=== PATIENT | female | born 1970 | race Caucasian/White ===

== ENCOUNTER 2024-05-12 07:37 | Day surgery (SDC) | payer OTHER ==
[~2024-05-12] VITALS: Ht 162.6 cm; Wt 102.1 kg
[2024-05-12] VITALS (15 sets, daily range): BP systolic 80–143; BP diastolic 48–81
[~2024-05-12 07:37] MED LIST: GABA100; Lactated Ringer's 1,000 ML IV SCH; NAPR500 PO; PROG100 PO; propofoL 40 ML IV ONE
--- NOTE | 2024-05-12 08:03 | NUR ---
History, Chart, Medications and Allergies reviewed before start of procedure. Patient confirms NPO status and agrees with scheduled surgery. Reports completing colon prep with clear results. Patient States Post-Procedure ride home has been arranged with , Fausto.
--- NOTE | 2024-05-12 08:04 | NUR ---
05/12/24 0803 Gayla Cabrales HISTORY, CHART, MEDICATIONS AND ALLERGIES REVIEWED BEFORE START OF PROCEDURE. PATIENT CONFIRMS NPO STATUS AND AGREES WITH SCHEDULED PROCEDURE. 3-LEAD EKG REVIEWED WITH PHYSICIAN PRIOR TO START OF PROCEDURE. MONITOR INTACT WITH CONTINUOUS PULSE OXIMETRY,CAPNOGRAPHY, 3-LEAD EKG, INTERMITTENT BP. SUPPLEMENTAL O2 TO BE TITRATED THROUGHOUT PROCEDURE TO MAINTAIN O2 SATURATION ABOVE 90%. PATIENT DETERMINED TO BE ASA APPROPRIATE FOR PROPOFOL SEDATION PRIOR TO START OF PROCEDURE BY DR. MANNING
[2024-05-12] MEDS ORDERED: ESTRADIOL0.5 MG PO (08:22)
--- NOTE | 2024-05-12 09:09 | NUR ---
DISCHARGE NOTE Patient up to Ambulate independently. Gait steady. Discharge instructions reviewed with patient. Patient verbalizes understanding. Copy given to patient to take home.Lungs clear T/O to Auscultation. Tolerating PO fluid and crackers. Discharged via wheelchair to private car for ride home.
== END 2024-05-12 09:10 | disposition home or self-care (01) ==
LOC: ORSCMMR 07:37 → ORD 08:30 → ORSCMMR 09:10
PROVIDERS: Internal Medicine Gastroenterology
PROC: 0DBN8ZX Excision of Sigmoid Colon, Via Natural or Artificial Opening Endoscopic, Diagnostic (ICD-10-PCS; principal; 2024-05-12 08:30)
PROC: 0DBM8ZX Excision of Descending Colon, Via Natural or Artificial Opening Endoscopic, Diagnostic (ICD-10-PCS; principal; 2024-05-12 08:30)
DX: Z12.11 Encounter for screening for malignant neoplasm of colon (principal); K63.5 Polyp of colon; E66.9 Obesity, unspecified; Z68.38 Body mass index [BMI] 38.0-38.9, adult; Z79.899 Other long term (current) drug therapy
CPT/HCPCS: 88305; J2704; J7120